=== PATIENT | male | born 2000 | race African-American/Black ===

== ENCOUNTER 2022-04-27 20:36 | Emergency (ER) | payer OTHER ==
[2022-04-27 20:54] VITALS: BP 112/72; PULSE 84; TEMP 98.7; BMI 14.9
[2022-04-27] MEDS ORDERED: KETOROLAC TROMETHAMINE 30 MG/1 ML VIAL IVPUSH ONE (21:31)
[2022-04-27] MEDS ORDERED: KETOROLAC TROMETHAMINE 30 MG/1 ML VIAL ONE (21:41)
[2022-04-27 22:03] LABS: BASO % 0.5 % (0-2.0); EOS % 0.2 % (0-4.5); HEMOGLOBIN 13.6 GM/dL (11.7-16.9); LYMPH % 15.5 % (8-40); MCH 27.9 pg (25.7-33.7); MCHC 33.2 g/dl (32.0-35.9); MEAN CELL VOLUME 84.2 fl (80-96); MEAN PLT VOLUME 8.1 fl (7.5-11.1); MONO % 14.7 % (3.8-10.2); NEUT % 69.1 % (42.8-82.8); PLATELET COUNT 173 10^3/uL (134-434); RBC 4.87 M/mm3 (4.00-5.60); RDW 13.3 % (11.9-15.9); WHITE BLOOD COUNT 7.2 K/mm3 (4.0-10.0)
[2022-04-27 22:22] LABS: CALCIUM 9.1 mg/dL (8.5-10.1)
[2022-04-27 22:23] LABS: ALBUMIN 3.5 g/dl (3.4-5.0); BLOOD UREA NITROGEN 18.8 mg/dL (7-18)
[2022-04-27 22:27] LABS: TOT PROT 8.3 g/dl (6.4-8.2)
[2022-04-27 22:28] LABS: BILIRUBIN,TOTAL 1.3 mg/dL (0.2-1)
[2022-04-27 22:50] LABS: ERYTHROCYTE SEDIMENTATION RATE 42 mm/hr (0-10)
[2022-04-28 00:45] LABS: HIV INTERPRETATION NEGATIVE (NEGATIVE)
== END 2022-04-28 11:13 | disposition home or self-care (01) ==
LOC: JERFT 20:36
PROC: 3E0333Z Introduction of Anti-inflammatory into Peripheral Vein, Percutaneous Approach (ICD-10-PCS; principal; 2022-04-27)
DX: L04.9 Acute lymphadenitis, unspecified (principal)
CPT/HCPCS: 0241U-QW; 36415; 80053; 85025; 85651; 86140; 86308; 87389; 99284-25

== ENCOUNTER 2023-05-03 11:32 | Emergency (ER) | payer OTHER ==
[2023-05-03 11:39] VITALS: BP 122/79; PULSE 60; RESP 16; TEMP 98.2; BMI 16.2
== END 2023-05-03 12:31 | disposition home or self-care (01) ==
LOC: JERFT 11:32
PROC: 0J990ZZ Drainage of Buttock Subcutaneous Tissue and Fascia, Open Approach (ICD-10-PCS; principal; 2023-05-03)
DX: K61.0 Anal abscess (principal)
CPT/HCPCS: 99283-25

== ENCOUNTER 2023-07-16 16:23 | Emergency (ER) | payer OTHER ==
[2023-07-16 17:01] VITALS: BP 116/74; PULSE 83; RESP 18; TEMP 98.4; BMI 15.5
[2023-07-16] MEDS ORDERED: IBUPROFEN 600 MG TABLET (FP) PO ONE ×2 (19:07→19:19)
== END 2023-07-16 20:19 | disposition home or self-care (01) ==
LOC: JERFT 16:23
DX: M25.512 Pain in left shoulder (principal); M25.522 Pain in left elbow; M25.532 Pain in left wrist; W01.0XXA Fall on same level from slipping, tripping and stumbling without subsequent striking against object, initial encounter
CPT/HCPCS: 73030-TC-LT-FY; 73070-TC-LT-FY; 73090-TC-LT-FY; 73110-TC-LT-FY; 99283-25

== ENCOUNTER 2023-08-17 08:24 | Emergency (ER) | payer SELFPAY ==
[2023-08-17 08:38] VITALS: BP 116/63; PULSE 92; RESP 18; TEMP 98.1; BMI 15.8
[2023-08-17 10:27] LABS: BASO % 0.6 % (0-2.0); EOS % 2.3 % (0-4.5); HEMATOCRIT 40.4 % (35.4-49); HEMOGLOBIN 13.8 GM/dL (11.7-16.9); LYMPH % 21.3 % (8-40); MCH 29.6 pg (25.7-33.7); MCHC 34.3 g/dl (32.0-35.9); MEAN CELL VOLUME 86.5 fl (80-96); MEAN PLT VOLUME 8.6 fl (7.5-11.1); NEUT % 62.8 % (42.8-82.8); PLATELET COUNT 134 10^3/uL (134-434); RBC 4.66 M/mm3 (4.00-5.60); RDW 12.2 % (11.9-15.9); WHITE BLOOD COUNT 4.2 K/mm3 (4.0-10.0)
[2023-08-17 10:51] LABS: ALBUMIN 3.7 g/dl (3.4-5.0); BLOOD UREA NITROGEN 16.3 mg/dL (7-18)
[2023-08-17 10:53] LABS: CREATININE 0.9 mg/dL (0.55-1.3)
[2023-08-17 10:55] LABS: BILIRUBIN,TOTAL 0.5 mg/dL (0.2-1); TOT PROT 7.6 g/dl (6.4-8.2)
== END 2023-08-17 11:30 | disposition home or self-care (01) ==
LOC: JER 08:24
DX: R11.2 Nausea with vomiting, unspecified (principal); R10.9 Unspecified abdominal pain; R68.83 Chills (without fever); R19.7 Diarrhea, unspecified
CPT/HCPCS: 36415; 80053; 85025; 99283-25